=== PATIENT | male | born 1955 | race Caucasian/White ===

== ENCOUNTER 2020-04-16 19:35 | Inpatient (IN) | payer MEDICARE ==
[2020-04-16 22:27] LABS: Glucose,Whole Blood 191 mg/dL (75-99)
[2020-04-16] MEDS ORDERED: NALOXONE 0.4 MG/ML 1 ML VIAL IV PRN (22:41)
[2020-04-16] MEDS ORDERED: HYDROmorphone 0.5 MG/0.5 ML SYRINGE IVP PRN (22:43)
[2020-04-16] MEDS ORDERED: HYDROcodone/APAP 5-325MG 1 EACH TAB PO PRN (22:43)
[2020-04-16] MEDS ORDERED: ALPRAZolam 0.25 MG TAB PO PRN (22:43)
[2020-04-16] MEDS ORDERED: ACETAMINOPHEN TAB 500 MG TAB PO PRN (22:43)
[2020-04-16] MEDS ORDERED: IOPAMIDOL CONTRAST (ORAL USE) VIAL PO PRN (22:58)
[2020-04-16] MEDS: SODIUM CHLORIDE 0.9% 1,000 ML IV SCH (23:28)
[2020-04-16] MEDS: PANTOPRAZOLE 40 MG/10 ML VIAL IVP SCH (23:29)
[2020-04-17 00:33] LABS: Anisocytosis Slight; Basophils % (A) 0 %; Eosinophils # (A) 0.2 k/uL (0-0.7); Eosinophils % (A) 3 %; Hypochromasia Slight; Lymphocytes # (A) 2.4 k/uL (1.0-4.8); Lymphocytes % (A) 37 %; MCHC 32.7 g/dL (31.0-37.0); MCV 91.6 fL (80.0-100.0); Macrocytosis Slight; Mean Platelet Volume 7.3; Monocytes # (A) 0.3 k/uL (0-1.0); Monocytes % (A) 5 %; Neutrophils # (A) 3.3 k/uL (1.3-7.7); Neutrophils % (A) 52 %; Platelet Count 166 k/uL (150-450); Poikilocytosis Slight; RDW 19.5 % (11.5-15.5); WBC 6.4 k/uL (3.8-10.6)
[2020-04-17 00:34] LABS: ALT 44 U/L (4-49); AST 70 U/L (17-59); African American GFR (CKD) >90 (>60 ml/min/1.73 sqM); Albumin 2.4 g/dL (3.5-5.0); Alkaline Phosphatase 113 U/L (38-126); Anion Gap 3 mmol/L; Blood Urea Nitrogen 15 mg/dL (9-20); Calcium 7.4 mg/dL (8.4-10.2); Carbon Dioxide 27 mmol/L (22-30); Chloride 99 mmol/L (98-107); Glucose 158 mg/dL (74-99); Magnesium 1.7 mg/dL (1.6-2.3); Non-African American GFR(CKD) >90 (>60 ml/min/1.73 sqM); Phosphorus 3.1 mg/dL (2.5-4.5); Potassium 3.4 mmol/L (3.5-5.1); Sodium 129 mmol/L (137-145); Total Protein 5.1 g/dL (6.3-8.2)
[2020-04-17 00:53] LABS: HGB 6.3 gm/dL (13.0-17.5)
[2020-04-17 00:54] LABS: HCT 19.2 % (39.0-53.0)
[2020-04-17] MEDS ORDERED: FUROSEMIDE 10 MG/ML 2 ML VIAL IV PRN (00:58)
--- NOTE | 2020-04-17 01:27 | XR ---
EXAMINATION TYPE: XR chest 1V portable DATE OF EXAM: 04/17/2020 COMPARISON: NONE HISTORY: Short of breath TECHNIQUE: Single view FINDINGS: There is no heart failure nor confluent pneumonic infiltrate. Costophrenic angles are clear . There are chest leads. Bony thorax is intact. IMPRESSION: No active cardiopulmonary disease. Normal heart.
--- NOTE | 2020-04-17 01:33 | CT ---
EXAMINATION TYPE: CT abdomen pelvis wo con DATE OF EXAM: 04/17/2020 COMPARISON: None HISTORY: R/O bowel Obs. CT DLP: 567.3 mGycm Automated exposure control for dose reduction was used. There is oral contrast. There is mild subsegmental atelectasis at the posterior lung bases. Heart size is normal. There is no pericardial effusion. Liver shows no focal defect. There is somewhat irregular anterior margin of the liver. Gallbladder ap pears normal. Bile ducts are not dilated. Spleen has normal size and contour. There is no sign of dennis creatic mass. There is no adrenal mass. Kidneys have normal size. There is dilute contrast in both kidneys from CT scan yesterday. Ureters are not dilated. There is no hydronephrosis. There is no retroperitoneal laurie opathy. Terminal ileum appears normal. Appendix not definitely seen. No sign of thickened appendix. B ladder is distended with contrast. There is no inguinal hernia. There is no free fluid in the pelvis. There is no sign of a pelvic mass. There is a few millimeter anterior subluxation of L4 in relation L5. There is L5-S1 disc space narrowing and spur formation. There is no compression fracture. The bon y pelvis appears intact. There is no mesenteric edema. There is no ascites or free air. There is no sign of a bowel obstructio n. There are scattered colonic diverticula without evidence of diverticulitis. IMPRESSION: Mild subsegmental atelectasis at the right lung base. No acute abnormality within the abdomen pelvis. Mildly irregular liver margin could relate to some cirrhosis. No adverse change compared to exam yesterday.
[2020-04-17 02:18] LABS: Appearance,Urine Clear (Clear); Bilirubin,Urine Negative (Negative); Blood,Urine Negative (Negative); Color,Urine Yellow; Glucose,Urine (UA) 4+ (Negative); Ketones,Urine Negative (Negative); Leukocyte Esterase,Urine Negative (Negative); Nitrite,Urine Negative (Negative); PH, Urine 5.5 (5.0-8.0); Protein,Urine Negative (Negative); Urobilinogen,Urine <2.0 mg/dL (<2.0)
[2020-04-17 02:39] LABS: Specific Gravity,Urine 1.049 (1.001-1.035)
--- NOTE | 2020-04-17 04:24 | HP ---
HISTORY AND PHYSICAL CHIEF COMPLAINTS: GI bleed. HISTORY OF PRESENT ILLNESS: This 65-year-old gentleman with a past medical history of no medical issues except cataract surgery, being followed by no primary physician in the outpatient setting. 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 Apparently the patient ate a sandwich which was some green mold in it. Subsequently, patient was having vomiting. Patient noted some red blood initially and subsequently patient also had some melenic stools. The patient had repeated episodes of hematemesis subsequently and the patient became progressively weak and patient apparently fell on the toilet, moving the toilet even and hitting the left side of the chest and severe pain also. Because of syncopal episode, the patient checked into [facility] and hemoglobin was found to be 6.4. The physician at the [facility] [facility], Dr. Alex An, discussed the case at length with me over the phone and the patient was directly transferred to [facility] for further evaluation and treatment. One unit transfusion has been arranged. There is no history of any fever, rigor or chills. No history of any headache, seizures at this time. PAST MEDICAL HISTORY: History of cataracts. MEDICATIONS: None. ALLERGIES: None. FAMILY HISTORY: History of diabetes mellitus in the family. SOCIAL HISTORY: No history of smoking. No history of alcohol intake. REVIEW OF SYSTEMS: ENT: No diminished hearing or diminished vision. CARDIOVASCULAR SYSTEM: As mentioned earlier. RESPIRATORY SYSTEM: As mentioned earlier. GI: As mentioned earlier. : No dysuria or retention. NERVOUS SYSTEM: No numbness or weakness. ALLERGY/IMMUNOLOGY: No asthma or hayfever. MUSCULOSKELETAL: As mentioned earlier. HEMATOLOGY/ONCOLOGY: As mentioned earlier. ENDOCRINE: No history of diabetes or hypothyroidism. CONSTITUTIONAL: As mentioned earlier. DERMATOLOGY: Negative. RHEUMATOLOGY: Negative. PSYCHIATRY: As mentioned earlier. PHYSICAL EXAMINATION: The patient is alert and oriented x3. Pulse 71, blood pressure 99/61, respiration 18, temperature 98 degrees, pulse ox 98% on room air. HEENT: Conjunctivae normal. NECK: No jugular venous distention. CARDIOVASCULAR: S1, S2 muffled. RESPIRATORY: Breath sounds diminished at the bases. A few scattered rhonchi and crackles. Minimal tenderness in the left lower part of the chest. ABDOMEN: Soft, mild diffuse distention. Nontender. No mass palpable. LEGS: No edema, no swelling. NERVOUS SYSTEM: Higher function as mentioned earlier. Moves all 4 limbs. No focal motor or sensory deficits. LYMPHATICS: No lymphadenopathy of the neck, axillae or groin. SKIN: No ulcer, rash or bleeding. JOINTS: No active deforming arthropathy. LABS: Glucose 191. Other labs are awaited. ASSESSMENT: 1. Possible upper gastrointestinal bleeding with acute blood loss anemia possibly secondary to peptic ulcer disease. 2. Status post blood transfusion. 3. Anemia. 4. History of cataract surgery. 5. Constipation. 6. Abdominal distention. 7. Fall and left-sided chest pain, rule out contusion or rib fracture. RECOMMENDATIONS AND DISCUSSION: This 65-year-old gentleman presented with multiple complex medical issues, we will monitor the patient closely. Continue the current medications, continue symptomatic treatment. The patient has upper GI bleed, exact etiology is unknown. Patient also had constipation. I would recommend gastroenterology consultation for possible EGD, colonoscopy, and I would also recommend a CT scan of the abdomen and portable chest x- ray, basic workup, symptomatic treatment of the pain. Avoid NSAIDs. Proton pump inhibitors. Monitor hemoglobin closely. I would recommend transfusion if hemoglobin less than 7 if symptomatic. Otherwise, overall prognosis guarded because of multiple complex medical issues. Further recommendations will follow. I also recommend the patient to follow up with primary physician closely after discharge. MMODL / IJN: [id number] /
[2020-04-17 06:20] VITALS: RESP 16
[2020-04-17 06:33] LABS: Glucose,Whole Blood 189 mg/dL (75-99)
[2020-04-17] MEDS: PANTOPRAZOLE 40 MG/10 ML VIAL IVP SCH (08:27)
[2020-04-17] MEDS: INSULIN ASPART (NovoLOG) 100 UNIT/ML VIAL SQ SCH ×2 (08:27→12:14)
[2020-04-17 09:38] LABS: African American GFR (CKD) >90 (>60 ml/min/1.73 sqM); Anion Gap 3 mmol/L; Anisocytosis Slight; Basophils % (A) 0 %; Blood Urea Nitrogen 13 mg/dL (9-20); Calcium 7.2 mg/dL (8.4-10.2); Carbon Dioxide 27 mmol/L (22-30); Chloride 101 mmol/L (98-107); Eosinophils # (A) 0.2 k/uL (0-0.7); Eosinophils % (A) 3 %; Glucose 185 mg/dL (74-99); HCT 24.2 % (39.0-53.0); HGB 7.7 gm/dL (13.0-17.5); Hypochromasia Slight; Lymphocytes # (A) 1.5 k/uL (1.0-4.8); Lymphocytes % (A) 30 %; MCH 29.4 pg (25.0-35.0); MCHC 31.9 g/dL (31.0-37.0); MCV 92.3 fL (80.0-100.0); Macrocytosis Slight; Mean Platelet Volume 7.2; Monocytes # (A) 0.3 k/uL (0-1.0); Monocytes % (A) 6 %; Neutrophils # (A) 2.9 k/uL (1.3-7.7); Neutrophils % (A) 58 %; Non-African American GFR(CKD) >90 (>60 ml/min/1.73 sqM); Platelet Count 156 k/uL (150-450); Poikilocytosis Slight; Potassium 3.7 mmol/L (3.5-5.1); RBC 2.62 m/uL (4.30-5.90); RDW 18.6 % (11.5-15.5); Sodium 131 mmol/L (137-145)
[2020-04-17 11:37] LABS: Glucose,Whole Blood 156 mg/dL (75-99)
--- NOTE | 2020-04-17 11:42 | P.DS ---
Providers Date of admission: 04/16/20 21:36 Attending physician: Dominick Diop Consults: 04/16/20 22:42 Consult Physician Routine Consulting Provider: Karen Miller Consult Reason/Comments: gi bleed Do you want consulting provider notified?: Yes Primary care physician: Stated None Hospital Course: Patient is admitted for acute upper GI bleed which resolved at this time patient had a normal bowel movement today. Patient is undergoing upper GI endoscopy if cleared by gastric probably patient will be discharged today on Prilosec for about a month patient will need further workup with ferritin and B12 folate levels as an outpatient patient appears to have some chronic anemia apart from acute blood loss anemia. PHYSICAL EXAMINATION: GENERAL: The patient is alert and oriented x3, not in any acute distress. Well developed, well nourished. HEENT: Pupils are round and equally reacting to light. EOMI. No scleral icterus. Does have conjunctival pallor. Normocephalic, atraumatic. No pharyngeal e rythema. No thyromegaly. CARDIOVASCULAR: S1 and S2 present. No murmurs, rubs, or gallops. PULMONARY: Chest is clear to auscultation, no wheezing or crackles. ABDOMEN: Soft, nontender, nondistended, normoactive bowel sounds. No palpable organomegaly. MUSCULOSKELETAL: No joint swelling or deformity. EXTREMITIES: No cyanosis, clubbing, or pedal edema. NEUROLOGICAL: Gross neurological examination did not reveal any focal deficits. SKIN: No rashes. Please refer to Dr. Diop's dictation for further details of hospitalization course Plan - Discharge Summary New Discharge Prescriptions: New Omeprazole [PriLOSEC] 40 mg PO AC-BID #30 capsule. Discharge Medication List Omeprazole [PriLOSEC] 40 mg PO AC-BID #30 capsule. 04/17/20 [Rx] Discharge Disposition: HOME SELF-CARE
[2020-04-17 11:48] VITALS: BP 94/56; PULSE 70; TEMP 97.6
[2020-04-17 11:48] LABS: Mixed Population RBC Present; Polychromasia Present
[2020-04-17] MEDS: SODIUM CHLORIDE 0.9% 1,000 ML IV SCH (12:15)
[2020-04-17 13:29] VITALS: BMI 25.2
[2020-04-17 13:46] LABS: Hemoglobin A1C 9.4 % (4.0-6.0)
[2020-04-17] MEDS ORDERED: PROPOFOL 10 MG/ML 20 ML VIAL IV ONE (14:10)
[2020-04-17] MEDS ORDERED: IV FLUID CONTINUATION 1,000 ML IV ONE (14:12)
[2020-04-17 14:19] LABS: Anisocytosis Slight; HCT 23.1 % (39.0-53.0); HGB 7.6 gm/dL (13.0-17.5); Hypochromasia Slight; MCH 30.4 pg (25.0-35.0); MCHC 32.8 g/dL (31.0-37.0); MCV 92.4 fL (80.0-100.0); Macrocytosis Slight; Mean Platelet Volume 7.5; Platelet Count 149 k/uL (150-450); Poikilocytosis Slight; RBC 2.49 m/uL (4.30-5.90); RDW 18.5 % (11.5-15.5); WBC 4.6 k/uL (3.8-10.6)
--- NOTE | 2020-04-17 14:24 | P.PCN ---
Date of Procedure: 04/17/20 Procedure(s) Performed: BRIEF HISTORY: Patient is a 65-year-old, pleasant, white male admitted hospital with acute upper GI bleed. He had multiple episodes of black tarry stools followed by bright red blood emesis. Never had these symptoms in the past. No history of peptic ulcer disease or recent NSAID use.. His hemoglobin was 6.8 and received 2 units of blood so far. Last hemoglobin is 7.6 g/dL. No history of chronic liver disease. CT of abdomen did show a nodular appearing liver suspicious for liver cirrhosis He scheduled for an upper endoscopy to evaluate further PROCEDURE PERFORMED: Esophagogastroduodenoscopy with biopsy. PREOPERATIVE DIAGNOSIS: Upper GI bleed. IV sedation per anesthesia. PROCEDURE: After informed consent was obtained, the patient was brought into the endoscopy unit. IV sedation was administered by Anesthesia under continuous monitoring. Initially the Olympus GIF-140 video endoscope was inserted into the mouth. Esophagus intubated without any difficulty. It was gradually advanced into the stomach and duodenum and carefully examined. The bulb and the second part of the duodenum appeared normal. The scope at this time was withdrawn to the stomach, adequately insufflated with air, and upon careful examination, mucosa of the antrum, had mild gastritis and biopsies were done from this area. Mucosa of the body, cardia and the fundus had changes consistent with mild to moderate portal hypertensive gastropathy with no active bleeding. The scope was then withdrawn into the esophagus. The GE junction was located at 39 cm from the incisors. The esophagus appeared normal. Very small distal esophageal varices seen. There were no erosions or ulcerations seen and the patient tolerated the procedure well. IMPRESSION: 1. Congested appearing mucosa in the fundus and body the stomach consistent with mild portal hypertensive gastropathy. No active bleeding seen 2. Mild antral gastritis. 3. Small esophageal varices RECOMMENDATIONS: The findings of this examination were discussed with the patient. Diet will be advanced as tolerated. Since there is no evidence of active bleeding he can be discharged home today with outpatient follow-up in 2 weeks.
--- NOTE | 2020-04-17 16:26 | CONS ---
CONSULTATION DATE OF DICTATION: 04/17/2020 REASON FOR CONSULTATION: Acute upper GI bleed. HISTORY OF PRESENT ILLNESS: The patient is a 65-year-old male with no significant past medical history. He went to the emergency room at [facility] after he had 3 days of black tarry stools. He subsequently had bright red emesis on 2 different occasions. At [facility] he was noted to have a hemoglobin of 6.4 and received one unit of PRBC transfusion and was sent to [facility] for further evaluation. After coming here, he received a second unit of PRBC transfusion and last hemoglobin was 7.4 g/dL. He denies any prior history of peptic ulcer disease. Denies any recent NSAID use. The patient has not had any black stools or any hematemesis yesterday or today. PAST MEDICAL HISTORY: Unremarkable. PAST SURGICAL HISTORY: Cataract surgery. MEDICATIONS AT HOME: None. ALLERGIES: NO KNOWN DRUG ALLERGIES. SOCIAL HISTORY: No smoking. No history of alcohol use. FAMILY HISTORY: Positive for diabetes mellitus in his father. REVIEW OF SYSTEMS: CARDIOPULMONARY: He denies any chest pain or shortness of breath. GENITOURINARY: No dysuria or hematuria. MUSCULOSKELETAL: Unremarkable. SKIN: Unremarkable. ENDOCRINE: Unremarkable. PSYCHIATRIC: Unremarkable. NEUROLOGY: Unremarkable. ENT/VISION: Unremarkable. CONSTITUTIONAL: No recent weight loss. No fever, chills, night sweats. PHYSICAL EXAMINATION: He appears comfortable. No apparent distress. Vital signs are stable. Blood pressure was 102/61, pulse rate 82 and afebrile. HEENT examination unremarkable. Conjunctivae pink. Sclerae anicteric. Oral cavity no lesions. NECK: No JVD or lymph node enlargement. CHEST: Clear to auscultation. HEART: Regular rate and rhythm. ABDOMEN: Soft. Bowel sounds are positive. No organomegaly. EXTREMITIES: No pedal edema. SKIN: No rashes. NEUROLOGIC: Alert and oriented x3. No focal deficits. LABS: WBC 5, hemoglobin 7.7, platelets are 149. PT/OT is within normal limits. AST and ALT are 70 and 44, respectively. T-bilirubin is 1. Albumin is 2.4. IMPRESSION: 1. Acute upper gastrointestinal bleed. Patient had several episodes of black tarry stools and 2 episodes of hematemesis. Hemoglobin was 6.8, requiring two units of PRBC transfusion. Last hemoglobin 7.6. No active bleeding yesterday or today. 2. CT of the abdomen showing nodular-appearing liver suspicious for liver cirrhosis. Patient has no history of alcohol use. RECOMMENDATIONS: 1. Will proceed with an upper endoscopy today. 2. Continue on Protonix 40 mg twice daily. 3. Avoid NSAIDs. 4. Further recommendations will follow based on the upper endoscopy results. Thank you for this consultation. MMODL / IJN: [id number] /
[2020-04-17 16:54] LABS: Glucose,Whole Blood 216 mg/dL (75-99)
== END 2020-04-17 17:09 | disposition home or self-care (01) | DRG 378 ==
LOC: 3SCARD 21:36
PROVIDERS: ADMIT Hospitalist; ATTEND Hospitalist
PROC: 30233N1 Transfusion of Nonautologous Red Blood Cells into Peripheral Vein, Percutaneous Approach (ICD-10-PCS; 2020-04-17)
PROC: 0DB78ZX Excision of Stomach, Pylorus, Via Natural or Artificial Opening Endoscopic, Diagnostic (ICD-10-PCS; principal; 2020-04-17 08:15)
DX: K29.71 Gastritis, unspecified, with bleeding (principal); K76.6 Portal hypertension; D62 Acute posthemorrhagic anemia; I85.00 Esophageal varices without bleeding; E11.9 Type 2 diabetes mellitus without complications; H26.9 Unspecified cataract; K31.89 Other diseases of stomach and duodenum; R55 Syncope and collapse; K59.00 Constipation, unspecified; R07.89 Other chest pain; K21.9 Gastro-esophageal reflux disease without esophagitis; K76.9 Liver disease, unspecified; W18.39XA Other fall on same level, initial encounter; Z71.3 Dietary counseling and surveillance; Z83.3 Family history of diabetes mellitus
CPT/HCPCS: 43239; 71045; 74176; 80048; 80053; 81003; 83036; 83735; 84100; 85025; 85027; 86850; 86900; 86901; 86920; 88305